=== PATIENT | male | born 1975 | race Caucasian/White ===

== ENCOUNTER 2018-06-15 10:44 | Emergency (ER) | payer OTHER ==
--- NOTE | 2018-06-15 11:30 | EDPHY ---
H & P Time Seen by Provider: 06/15/18 11:29 HPI/ROS: Chief complaint. High blood pressure, anxiety, urinary frequency HPI. Patient is a 42-year-old male who presents with complaint of constant thirst, decreased appetite, weight loss, deep decreased sleep. Anxiety. Frequent urination. Symptoms have been present for 10 days. He has blood sugar checked 2 days ago was 185. He has been diagnosis prediabetic. He has had no fever or cough or abdominal pain or chest discomfort or shortness of breath. No dysuria with the frequent urination. He has a hard time sleeping secondary to anxiety ROS 10 systems were reviewed and negative with the exception of the elements mentioned in the history of present illness Past Medical/Surgical History: Past medical history is significant for spinal surgery with neck fusion, splenectomy, hypertension, dyslipidemia Social History: , nonsmoker, no alcohol Smoking Status: Never smoked Physical Exam: General Appearance: Alert well-developed male mild distress vital signs are stable with initial blood pressure 132/102. Currently 127/94 Eyes: Pupils equal and round no pallor or injection. ENT, Mouth: Mucous membranes are moist. Respiratory: There are no retractions, lungs are clear to auscultation. Cardiovascular: Regular rate and rhythm. Gastrointestinal: Abdomen is soft and nontender, no masses, bowel sounds normal. Neurological: Awake and alert, sensory and motor exams grossly normal. Skin: Warm and dry, no rashes. Musculoskeletal: Neck is supple nontender. Extremities symmetrical, full range of motion. Psychiatric: Patient is oriented X 3, there is no agitation. Constitutional: Initial Vital Signs Temperature (C) 36.5 C 06/15/18 10:51 Heart Rate 86 06/15/18 10:51 Respiratory Rate 18 06/15/18 10:51 Blood Pressure 132/102 H 06/15/18 10:51 O2 Sat (%) 94 06/15/18 10:51 O2 Delivery Mode Room Air Allergies/Adverse Reactions: No Known Allergies Allergy (Verified 06/15/18 10:48) Home Medications: Medication Instructions Recorded Ondansetron Odt [Zofran Odt 4 mg 4 mg PO Q4 PRN #10 tab 02/19/18 (*)] SIMVASTATIN 02/19/18 Tamsulosin HCl [Flomax 0.4 MG (*)] 0.4 mg PO DAILY #10 cap 07/16/18 oxyCODONE HCL/ACETAMINOPHEN 1 each PO Q6H PRN #20 tablet 02/19/18 [Percocet 5-325 mg Tablet] oxyCODONE/APAP 5/325 [Percocet 1 tab PO QID PRN #20 tab 02/19/18 5/325 (*)] LORazepam [Ativan] 1 mg PO Q6-8PRN PRN #12 tab 06/15/18 Medical Decision Making Procedures: IV normal saline Ativan orally ED Course/Re-evaluation: Re-evaluation patient is stable. Patient and I discussed laboratory evaluation , treatment plan including criteeria for return importance of follow-up and further evaluation Differential Diagnosis: I considered hyper glycemia, DKA, urinary tract infection. It appears that the patient is probably prediabetic. Patient also has anxiety - Data Points Laboratory Results: Laboratory Results 06/15/18 12:20 06/15/18 12:20 06/15/18 06/15/18 06/15/18 12:26 12:20 12:20 WBC 8.10 10^3/uL 10^3/uL (3.80-9.50) RBC 5.55 10^6/uL 10^6/uL (4.40-6.38) Hgb 16.7 g/dL g/dL (13.7-17.5) Hct 48.5 % % (40.0-51.0) MCV 87.4 fL fL (81.5-99.8) MCH 30.1 pg pg (27.9-34.1) MCHC 34.4 g/dL g/dL (32.4-36.7) RDW 13.1 % % (11.5-15.2) Plt Count 278 10^3/uL 10^3/uL (150-400) MPV 11.0 fL fL (8.7-11.7) Neut % (Auto) 52.0 % % (39.3-74.2) Lymph % (Auto) 35.3 % % (15.0-45.0) [place] % (Auto) 10.6 % % (4.5-13.0) Eos % (Auto) 0.7 % % (0.6-7.6) Baso % (Auto) 1.2 % % (0.3-1.7) Nucleat RBC Rel Count 0.0 % % (0.0-0.2) Absolute Neuts (auto) 4.20 10^3/uL 10^3/uL (1.70-6.50) Absolute Lymphs (auto) 2.86 10^3/uL 10^3/uL (1.00-3.00) Absolute Monos (auto) 0.86 10^3/uL H 10^3/uL (0.30-0.80) Absolute Eos (auto) 0.06 10^3/uL 10^3/uL (0.03-0.40) Absolute Basos (auto) 0.10 10^3/uL 10^3/uL (0.02-0.10) Absolute Nucleated RBC 0.00 10^3/uL 10^3/uL (0-0.01) Immature Gran % 0.2 % % (0.0-1.1) Immature Gran # 0.02 10^3/uL 10^3/uL (0.00-0.10) Sodium 138 mEq/L mEq/L (135-145) Potassium 4.0 mEq/L mEq/L (3.3-5.0) Chloride 106 mEq/L mEq/L (97-110) Carbon Dioxide 20 mEq/l L mEq/l (22-31) Anion Gap 12 mEq/L mEq/L (6-14) BUN 9 mg/dL mg/dL (7-23) Creatinine 0.8 mg/dL mg/dL (0.7-1.3) Estimated GFR > 60 Glucose 136 mg/dL H mg/dL (70-100) Calcium 9.7 mg/dL mg/dL (8.5-10.4) Urine Color COLORLESS Urine Appearance CLEAR Urine pH 7.0 (5.0-7.5) Ur Specific [place] 1.002 (1.002-1.030) Urine Protein NEGATIVE (NEGATIVE) Urine Ketones NEGATIVE (NEGATIVE) Urine Blood NEGATIVE (NEGATIVE) Urine Nitrate NEGATIVE (NEGATIVE) Urine Bilirubin NEGATIVE (NEGATIVE) Urine Urobilinogen NEGATIVE EU EU (0.2-1.0) Ur Leukocyte Esterase NEGATIVE (NEGATIVE) Urine RBC NONE SEEN /hpf /hpf (0-3) Urine WBC 0-1 /hpf /hpf (0-3) Ur Epithelial Cells NONE SEEN /lpf /lpf (NONE-1+) Urine Mucus TRACE /lpf /lpf (NONE-1+) Urine Glucose NEGATIVE (NEGATIVE) Medications Given: Discontinued Medications Sodium Chloride (Ns) 1,000 mls @ 0 mls/hr IV EDNOW ONE; Wide Open PRN Reason: Protocol Stop: 06/15/18 12:10 Last Admin: 06/15/18 13:30 Dose: 1,000 mls Departure - Departure Disposition: Home, Routine, Self-Care Clinical Impression: Anxiety, Hyperglycemia Condition: Good Instructions: Anxiety (ED), Diabetes and Exercise (ED) Additional Instructions: Ativan every 6-8 hours as needed for anxiety Return for worsening symptoms. Further evaluation for her diabetes with Dr. Rubio Referrals: Yamileth Rubio MD [Primary Care Provider] - 2-3 days, call for appt. Prescriptions: LORazepam [Ativan] 1 mg PO Q6-8PRN PRN #12 tab PRN Reason: Anxiety
[2018-06-15] MEDS ORDERED: NS 1,000 ML IV ONE (12:09)
[2018-06-15 12:27] LABS: PLATELET COUNT 278 10^3/uL (150-400)
[2018-06-15] MEDS ORDERED: LORazepam 1 MG TAB PO ONE (13:54)
[2018-06-15 14:17] VITALS: BP 141/96
== END 2018-06-15 14:15 | disposition home or self-care (01) ==
DX: F41.9 Anxiety disorder, unspecified (principal); R73.9 Hyperglycemia, unspecified; R35.0 Frequency of micturition; R73.03 Prediabetes; I10 Essential (primary) hypertension; E86.9 Volume depletion, unspecified